=== PATIENT | female | born 1980 | race African-American/Black ===

== ENCOUNTER 2020-10-19 09:57 | Emergency (ER) | payer OTHER, MEDICAID ==
[~2020-10-19] VITALS: Ht 172.7 cm; Wt 116.0 kg
[2020-10-19] MEDS ORDERED: NYQUILL (10:03)
[2020-10-19 10:34] LABS: BASOPHILS % 0.7 % (0.0-2.0); EOSINOPHILS % 1.7 % (0.0-5.0); HEMATOCRIT. 39.5 % (36.0-48.0); HEMOGLOBIN. 13.3 g/dL (12.0-16.0); LYMPHOCYTES % 36.4 % (20.0-50.0); MEAN CORPUSCULAR HEMOGLOBIN 33.8 pg (28.0-32.0); MEAN CORPUSCULAR VOLUME 99.9 fL (81.0-99.0); MEAN PLATELET VOLUME 9.3 fl (7.4-10.4); MONOCYTES % 10.7 % (2.0-8.0); NEUTROPHILS % 50.5 % (40.0-76.0); PLATELET 305 x1000/uL (130-400); RED BLOOD CELL COUNT 3.95 mill/uL (4.2-5.4); RED CELL DISTRIBUTION WIDTH 14.3 % (11.6-14.6)
[2020-10-19 10:42] LABS: CHLORIDE 108 mEq/L (98-107)
[2020-10-19] MEDS ORDERED: ACETAMINOPHEN 325MG TABLET PO ONE (11:30)
[2020-10-19] MEDS ORDERED: MORPHINE SULFATE 4 MG/ML CPJ (NOT FOR IM USE) IV ONE (12:15)
[2020-10-19 13:32] VITALS: BP 208/127
== END 2020-10-19 13:38 | disposition home or self-care (01) ==
LOC: ER 10:29
DX: R07.9 Chest pain, unspecified (principal); R05 Cough; I10 Essential (primary) hypertension; J45.909 Unspecified asthma, uncomplicated; E03.9 Hypothyroidism, unspecified
CPT/HCPCS: 36415; 71045; 80053; 81025; 83880; 84484; 85025; 85379; 93005; 96374; 99285; J2270; Z7610

== ENCOUNTER 2024-05-17 23:54 | Emergency (ER) | payer MEDICAID, OTHER ==
[~2024-05-17] VITALS: Ht 165.1 cm; Wt 61.0 kg
[~2024-05-17 23:54] MED LIST: NYQUILL
[2024-05-17 23:58] VITALS: O2SAT 99
[2024-05-18 01:08] LABS: BASOPHILS % 1.1 % (0.0-2.0); DIFFERENTIAL COMMENT 0; EOSINOPHILS % 1.1 % (0.0-5.0); HEMATOCRIT. 37.5 % (36.0-48.0); HEMOGLOBIN. 12.9 g/dL (12.0-16.0); LYMPHOCYTES % 35.6 % (20.0-50.0); MEAN CORPUSCULAR HEMOGLOBIN 35.3 pg (28.0-32.0); MEAN CORPUSCULAR HGB CONC 34.5 g/dL (31.0-37.0); MEAN CORPUSCULAR VOLUME 102.2 fL (81.0-99.0); MEAN PLATELET VOLUME 8.4 fl (7.4-10.4); MONOCYTES % 7.4 % (2.0-8.0); NEUTROPHILS % 54.8 % (40.0-76.0); PLATELET 356 x1000/uL (130-400); RED BLOOD CELL COUNT 3.67 mill/uL (4.2-5.4); RED CELL DISTRIBUTION WIDTH 14.3 % (11.6-14.6); WHITE BLOOD COUNT 11.9 x1000/uL (4.5-11.0)
[2024-05-18 01:11] LABS: CHLORIDE 107 mEq/L (98-107); POTASSIUM 3.4 mEq/L (3.5-5.1); SODIUM 139 mEq/L (136-145)
[2024-05-18 01:12] LABS: CALCIUM 9.5 mg/dL (8.7-10.4); CARBON DIOXIDE 19 mEq/L (21-32)
[2024-05-18 01:17] LABS: GLUCOSE 102 mg/dL (70-105); UREA NITROGEN BLOOD 14 mg/dL (9-23)
[2024-05-18 01:18] LABS: TROPONIN I HIGH SENSITIVITY 16 ng/L (3.0-34)
[2024-05-18] MEDS: ONDANSETRON HCL 4MG/2ML INJ IV STA (01:25)
[2024-05-18] MEDS: MORPHINE SULFATE 4 MG/ML INJ (FOR IV/IM USE) IV STA (01:25)
[2024-05-18 01:49] LABS: HCG SCREEN NEGATIVE
[2024-05-18] MEDS ORDERED: NAPR-1176 MT (05:08)
[2024-05-18] MEDS ORDERED: LIDO700A15 TP (05:08)
[2024-05-18 05:40] VITALS: BP 119/77; PULSE 84; RESP 15; TEMP 36.89184; O2SAT 100
[2024-05-18] MEDS ORDERED: IOHEXOL-300 100 ML BOTTLE ONE (07:00)
== END 2024-05-18 05:45 | disposition home or self-care (01) ==
LOC: ER 05-18 00:09
DX: S20.219A Contusion of unspecified front wall of thorax, initial encounter (principal); R07.89 Other chest pain; E03.9 Hypothyroidism, unspecified; F41.9 Anxiety disorder, unspecified; I10 Essential (primary) hypertension; J45.909 Unspecified asthma, uncomplicated; Z79.1 Long term (current) use of non-steroidal anti-inflammatories (NSAID); W01.0XXA Fall on same level from slipping, tripping and stumbling without subsequent striking against object, initial encounter; Y93.89 Activity, other specified; Y92.89 Other specified places as the place of occurrence of the external cause; Y99.8 Other external cause status
CPT/HCPCS: 80048; 84703; 85025; 84484; 36415; 71045; 71260; 93005; 96374; 96375; 99285; Q9967; J2405; J2270; Z7610